=== PATIENT | male | born 1985 | race Caucasian/White ===

== ENCOUNTER 2020-12-14 11:18 | Emergency (ER) | payer OTHER ==
[~2020-12-14] VITALS: Ht 177.8 cm; Wt 84.1 kg
[2020-12-14 11:24] VITALS: TEMP 98.3
[2020-12-14 11:58] LABS: BASO % 0.1 % (0.0-2.0); EOS % 0.2 % (0-4.0); GRAN # 9.1 (1.4-6.5); GRAN % 81.9 % (42.2-75.2); HEMATOCRIT 47.4 % (42.0-52.0); HEMOGLOBIN 16.3 g/dl (13.5-18.0); LYMPH # 1.1 (1.2-3.4); LYMPH % 9.4 % (20.0-51.0); MEAN CELL VOLUME 89 fl (80.0-100.0); MEAN CORPUSCULAR HEMOGLOBIN 31 pg (27.0-31.0); MEAN CORPUSCULAR HGB CONC 34 g/dl (33.0-37.0); MEAN PLATELET VOLUME 9.2 fl (7.4-10.4); MONO # 0.9 (0.1-0.6); MONO % 8.1 % (1.7-9.3); PLATELET COUNT 233 K/mm3 (130-400); RED BLOOD COUNT 5.33 M/mm3 (4.20-5.60); REDCELL DISTRIBUTION WIDTH-CV 11.1 % (11.5-14.5)
[2020-12-14 12:03] LABS: ALBUMIN 4.3 gm/dL (3.5-5.0); BILIRUBIN,TOTAL 0.2 mg/dL (0.0-1.0); CREATININE, serum 0.67 (0.66-1.25); POTASSIUM 3.8 mmol/L (3.4-5.0); TOTAL PROTEIN 7.6 gm/dL (6.4-8.2)
[2020-12-14 13:01] LABS: STOOL FOR OCCULT BLOOD POSITIVE (NEGATIVE)
[2020-12-14] MEDS ORDERED: FLAGYL500 MG PO (14:41)
[2020-12-14] MEDS ORDERED: CIPRO 500MG TA500 MG PO (14:41)
[2020-12-14] MEDS ORDERED: BENTYL 20MG20 MG/TAB PO (14:45)
[2020-12-14 15:15] VITALS: BP 153/98
[2020-12-14 15:45] VITALS: PULSE 66
[2020-12-14 16:07] LABS: CLOSTRIDIUM DIFF A/B NEG; CLOSTRIDIUM DIFF A/B INTERP No C.diff present
== END 2020-12-14 16:00 | disposition home or self-care (01) ==
LOC: COL.ER 11:18
PROVIDERS: Nurse Practitioner Primary Care
DX: A04.9 Bacterial intestinal infection, unspecified (principal)
CPT/HCPCS: J2270; J2405; J7030